=== PATIENT | male | born 1965 | race Caucasian/White ===

== ENCOUNTER 2017-06-22 08:25 | Emergency (ER) | payer OTHER ==
[2017-06-22] MEDS ORDERED: SODIUM CHLORIDE 0.9% 1,000 ML IV STA ×2 (08:39)
[2017-06-22] MEDS ORDERED: ONDANSETRON 4 MG/2 ML VIAL IVP STA ×2 (08:39→10:56)
[2017-06-22] MEDS ORDERED: PANTOPRAZOLE 40 MG/10 ML VIAL IVP STA (08:39)
--- NOTE | 2017-06-22 08:42 | ED ---
General Adult HPI - General Chief complaint: Nausea/Vomiting/Diarrhea Stated complaint: nausea, vomiting, leilani Time Seen by Provider: 06/22/17 08:30 Source: patient, RN notes reviewed Mode of arrival: wheelchair Limitations: no limitations - History of Present Illness Initial comments: Patient is a 51-year-old male who presents emergency room today with a chief complaint of nausea vomiting over the last 5 days. He admits to pain throughout his body. Admits to chronic back pain. States that he's had pain everywhere in his legs his back and his abdomen. Also admits chest pain going across describes as a squeezing type pain that been present for the last 5 days. He states everything seemed to start together. Patient states she's not been able to keep down any liquids or food. Patient does admit that he believes he saw some blood in the emesis 3 days ago. States was a lot of stomach acid. He denies any other complaints or associated symptoms. Patient denies any recent fever, chills, numbness or tingling, dysuria or hematuria, constipation or diarrhea, headaches or visual changes, or any other complaints. - Related Data Home Medications Medication Instructions Recorded Confirmed Gabapentin [Neurontin] 800 mg PO TID 10/09/13 06/22/17 Lisinopril [Zestril] 20 mg PO DAILY 10/09/13 06/22/17 Hydrocodone/Acetaminophen 1 tab PO QID 02/27/14 06/22/17 [Hydrocodone/Acetaminophen 10-325] Baclofen 10 mg PO BID 06/22/17 06/22/17 Previous Rx's Medication Instructions Recorded Ondansetron Odt [Zofran ODT] 4 mg PO Q8HR PRN #20 tab 06/22/17 Allergies Allergy/AdvReac Type Severity Reaction Status Date / Time Penicillins Allergy Unknown Verified 06/22/17 08:56 Childhood Review of Systems ROS Statement: Those systems with pertinent positive or pertinent negative responses have been documented in the HPI. ROS Other: All systems not noted in ROS Statement are negative. Past Medical History Past Medical History: Hypertension, Osteoarthritis (OA) Additional Past Medical History / Comment(s): back problems, brain bleed jan 2014, hernia History of Any Multi-Drug Resistant Organisms: None Reported Past Surgical History: No Surgical Hx Reported Additional Past Anesthesia/Blood Transfusion Reaction / Comment(s): bp dropped after local given for tooth extraction Past Psychological History: No Psychological Hx Reported Smoking Status: Current every day smoker Past Alcohol Use History: None Reported Past Drug Use History: Marijuana - Past Family History Father Family Medical History: Hypertension Mother Family Medical History: No Reported History General Exam - General Exam Comments Initial Comments: General: The patient is awake and alert, in no distress, and does not appear acutely ill. Eye: Pupils are equal, round and reactive to light, extra-ocular movements are intact. No nystagmus. There is normal conjunctiva bilaterally. No signs of icterus. Ears, nose, mouth and throat: There are moist mucous membranes and no oral lesions. Neck: The neck is supple, there is no tenderness or JVD. Cardiovascular: There is a regular rate and rhythm. No murmur, rub or gallop is appreciated. Respiratory: Lungs are clear to auscultation, respirations are non-labored, breath sounds are equal. No wheezes, stridor, rales, or rhonchi. Gastrointestinal: Soft, non-distended. Mild tenderness throughout the abdominal wall. There is no rebound or guarding present. No CVA tenderness. Musculoskeletal: Normal ROM, no tenderness. Strength 5/5. Sensation intact. Pulses equal bilaterally 2+. Neurological: A&O x 3. CN II-XII intact, There are no obvious motor or sensory deficits. Coordination appears grossly intact. Speech is normal. Skin: Skin is warm and dry and no rashes or lesions are noted. Psychiatric: Cooperative, appropriate mood & affect, normal judgment. Limitations: no limitations Course Vital Signs 06/22/17 06/22/17 08:27 10:30 Temperature 97.8 F Pulse Rate 88 81 Respiratory 20 16 Rate Blood Pressure 113/68 128/76 O2 Sat by Pulse 98 96 Oximetry EKG Findings - EKG Comments: EKG Findings:: EKG performed at 0857: Shows normal sinus rhythm at 83 bpm. [place] interval 126. QRS 92. QT/QTc is 370/434. No acute ST changes. Medical Decision Making - Medical Decision Making Case discussed in detail with attending physician Dr. Lerma. Patient reexamined at this time shows no signs of distress resting comfortably. Patient labs been reviewed 13,000 white count. Several bouts of vomiting. No specific pain on palpation. EKG shows normal sinus rhythm. X-rays have been reviewed are unremarkable. Patient given 2 L of fluids here in the emergency room feeling better was given his home medications and was unable to express past week. Patient doing well at this time will be discharged home with nausea medication. Advised to follow-up the family doctor return if any symptoms increase worsen. - Lab Data Result diagrams: 06/22/17 08:56 06/22/17 08:56 Lab Results 06/22/17 06/22/17 06/22/17 Range/Units 08:56 08:56 08:56 WBC 13.6 H (3.8-10.6) k/uL RBC 5.61 (4.30-5.90) m/uL Hgb 18.0 H (13.0-17.5) gm/dL Hct 51.3 (39.0-53.0) % MCV 91.5 (80.0-100.0) fL MCH 32.1 (25.0-35.0) pg MCHC 35.1 (31.0-37.0) g/dL RDW 12.6 (11.5-15.5) % Plt Count 320 (150-450) k/uL Neutrophils % 72 % Lymphocytes % 19 % Monocytes % 7 % Eosinophils % 1 % Basophils % 0 % Neutrophils # 9.7 H (1.3-7.7) k/uL Lymphocytes # 2.6 (1.0-4.8) k/uL Monocytes # 0.9 (0-1.0) k/uL Eosinophils # 0.1 (0-0.7) k/uL Basophils # 0.0 (0-0.2) k/uL PT (9.0-12.0) sec INR (<1.2) APTT (22.0-30.0) sec Sodium 137 (137-145) mmol/L Potassium 4.5 (3.5-5.1) mmol/L Chloride 98 (98-107) mmol/L Carbon Dioxide 24 (22-30) mmol/L Anion Gap 15 mmol/L BUN 36 H (9-20) mg/dL Creatinine 1.19 (0.66-1.25) mg/dL Est GFR (CKD-EPI)AfAm 83 (>60 ml/min/1.73 sqM) Est GFR (CKD-EPI)NonAf 71 (>60 ml/min/1.73 sqM) Glucose 114 H (74-99) mg/dL Calcium 10.1 (8.4-10.2) mg/dL Magnesium 2.6 H (1.6-2.3) mg/dL Total Bilirubin 0.8 (0.2-1.3) mg/dL AST 21 (17-59) U/L ALT 20 L (21-72) U/L Alkaline Phosphatase 79 (38-126) U/L Total Creatine Kinase 268 H (55-170) U/L CK-MB (CK-2) 0.7 (0.0-2.4) ng/mL CK-MB (CK-2) Rel Index 0.3 Troponin I <0.012 (0.000-0.034) ng/mL Total Protein 8.2 (6.3-8.2) g/dL Albumin 4.9 (3.5-5.0) g/dL Amylase 41 (30-110) U/L Lipase 26 (23-300) U/L / Range/Units 08:56 WBC (3.8-10.6) k/uL RBC (4.30-5.90) m/uL Hgb (13.0-17.5) gm/dL Hct (39.0-53.0) % MCV (80.0-100.0) fL MCH (25.0-35.0) pg MCHC (31.0-37.0) g/dL RDW (11.5-15.5) % Plt Count (150-450) k/uL Neutrophils % % Lymphocytes % % Monocytes % % Eosinophils % % Basophils % % Neutrophils # (1.3-7.7) k/uL Lymphocytes # (1.0-4.8) k/uL Monocytes # (0-1.0) k/uL Eosinophils # (0-0.7) k/uL Basophils # (0-0.2) k/uL PT 10.2 (9.0-12.0) sec INR 1.0 (<1.2) APTT 24.2 (22.0-30.0) sec Sodium (137-145) mmol/L Potassium (3.5-5.1) mmol/L Chloride (98-107) mmol/L Carbon Dioxide (22-30) mmol/L Anion Gap mmol/L BUN (9-20) mg/dL Creatinine (0.66-1.25) mg/dL Est GFR (CKD-EPI)AfAm (>60 ml/min/1.73 sqM) Est GFR (CKD-EPI)NonAf (>60 ml/min/1.73 sqM) Glucose (74-99) mg/dL Calcium (8.4-10.2) mg/dL Magnesium (1.6-2.3) mg/dL Total Bilirubin (0.2-1.3) mg/dL AST (17-59) U/L ALT (21-72) U/L Alkaline Phosphatase (38-126) U/L Total Creatine Kinase (55-170) U/L CK-MB (CK-2) (0.0-2.4) ng/mL CK-MB (CK-2) Rel Index Troponin I (0.000-0.034) ng/mL Total Protein (6.3-8.2) g/dL Albumin (3.5-5.0) g/dL Amylase (30-110) U/L Lipase (23-300) U/L Disposition Clinical Impression: Nausea & vomiting Disposition: HOME SELF-CARE Instructions: Acute Nausea and Vomiting (ED) Additional Instructions: Please use medication as discussed. Please follow-up with family doctor in the next 2 days of symptoms have not improved. Please return to emergency room if the symptoms increase or worsen or for any other concerns. Prescriptions: Ondansetron Odt [Zofran ODT] 4 mg PO Q8HR PRN #20 tab PRN Reason: Nausea Referrals: Miriam Maldonado MD [Primary Care Provider] - 1-2 days Time of Disposition: 11:18
[2017-06-22 09:09] LABS: Basophils % (A) 0 %; Eosinophils # (A) 0.1 k/uL (0-0.7); Eosinophils % (A) 1 %; HCT 51.3 % (39.0-53.0); Lymphocytes # (A) 2.6 k/uL (1.0-4.8); Lymphocytes % (A) 19 %; MCH 32.1 pg (25.0-35.0); MCHC 35.1 g/dL (31.0-37.0); MCV 91.5 fL (80.0-100.0); Mean Platelet Volume 6.5; Monocytes # (A) 0.9 k/uL (0-1.0); Monocytes % (A) 7 %; Neutrophils # (A) 9.7 k/uL (1.3-7.7); Neutrophils % (A) 72 %; Platelet Count 320 k/uL (150-450); RBC 5.61 m/uL (4.30-5.90); RDW 12.6 % (11.5-15.5); WBC 13.6 k/uL (3.8-10.6)
[2017-06-22 09:17] LABS: Partial Thromboplastin Time 24.2 sec (22.0-30.0); Prothrombin Time 10.2 sec (9.0-12.0)
[2017-06-22 09:21] LABS: Albumin 4.9 g/dL (3.5-5.0); Calcium 10.1 mg/dL (8.4-10.2); Magnesium 2.6 mg/dL (1.6-2.3); Potassium 4.5 mmol/L (3.5-5.1); Total Bilirubin 0.8 mg/dL (0.2-1.3); Total Protein 8.2 g/dL (6.3-8.2)
--- NOTE | 2017-06-22 09:26 | XR ---
EXAMINATION TYPE: XR chest 2V DATE OF EXAM: 06/22/2017 COMPARISON: 02/09/2014 HISTORY: Chest pain TECHNIQUE: Frontal and lateral views of the chest are obtained. FINDINGS: There is no focal air space opacity. No evidence for pneumothorax. No pleural effusion. The cardiac silhouette size is within normal limits. The osseous structures are grossly intact. IMPRESSION: 1. No acute cardiopulmonary process.
--- NOTE | 2017-06-22 09:27 | XR ---
EXAMINATION TYPE: XR KUB DATE OF EXAM: 06/22/2017 COMPARISON: NONE HISTORY: Pain TECHNIQUE: One view abdominal series FINDINGS: The osseous structures are intact. The bowel gas pattern is nonspecific. Lung bases are clear. Hype rtrophic change of the spine. IMPRESSION: 1. Nonspecific abdomen.
[2017-06-22 09:37] LABS: Creatine Kinase 268 U/L (55-170)
[2017-06-22 09:49] LABS: Creatine Kinase MB 0.7 ng/mL (0.0-2.4); Troponin I <0.012 ng/mL (0.000-0.034)
[2017-06-22 10:32] VITALS: RESP 16
[2017-06-22] MEDS ORDERED: BACLOFEN 10 MG TAB PO PRN (11:08)
[2017-06-22] MEDS ORDERED: GABAPENTIN 400 MG CAP PO STA (11:08)
[2017-06-22] MEDS ORDERED: HYDROcodone/APAP 10-325MG 1 EACH TAB PO ONE (11:08)
[2017-06-22 12:10] VITALS: BP 125/77; PULSE 71; TEMP 97.4
== END 2017-06-22 12:50 | disposition home or self-care (01) ==
LOC: EC 08:25
DX: R11.2 Nausea with vomiting, unspecified (principal); R07.9 Chest pain, unspecified; G89.29 Other chronic pain; M54.9 Dorsalgia, unspecified; M79.604 Pain in right leg; M79.605 Pain in left leg; R10.9 Unspecified abdominal pain; I10 Essential (primary) hypertension; F17.200 Nicotine dependence, unspecified, uncomplicated; Z79.891 Long term (current) use of opiate analgesic; Z79.899 Other long term (current) drug therapy; Z88.0 Allergy status to penicillin; Z82.49 Family history of ischemic heart disease and other diseases of the circulatory system
CPT/HCPCS: 36415; 93005; 80053; 82150; 82550; 82553; 83690; 83735; 84484; 85025; 85610; 85730; 71046; 74018; 99285; 96374; 96375; 96376; 96361 ×4; J2405; C9113

== ENCOUNTER → 2018-11-30 | Outpatient (CLI) | payer OTHER ==
--- NOTE | 2018-11-30 18:29 | MR ---
EXAMINATION TYPE: MR cspine/lspine wo con DATE OF EXAM: 11/30/2018 COMPARISON: MR scan lumbar spine 03/25/2014 HISTORY: Spondylosis or cervical region, low back pain, radiculopathy of lumbosacral region, spondylo sis of lumbar region TECHNIQUE: Multiplanar, multisequence imaging of the lumbar and cervical spine is performed without I V contrast. FINDINGS: Cervical vertebra have normal alignment. There is slight narrowing of the C5-6 disc space. There is s mall posterior disc herniation at C5-6 C6-7. Cervical spinal cord has normal signal pattern. There is no edema. Brainstem is intact. There is no spinal stenosis. I see no bony destructive process. There is no cervical paraspinal mass. Lumbar vertebra have normal alignment. There is degenerative disc space narrowing from L2 to S1 with decreased signal in the disks. There is posterior disc bulging and herniation at L2-3 L3-4 and also L 5-S1. Lumbar nerve roots have normal signal pattern. There is left side neural foraminal narrowing at L4-5 due to facet arthropathy and disc space narrowing. I see no bony destructive process. There is no lumbar compression fracture. There is posterior right-sided L5-S1 disc herniation impinging on the lateral recess. There is no lumbar paraspinal mass. Visualized sacroiliac joints are intact. IMPRESSION: Mild spondylotic changes in the cervical spine. Small posterior disc herniations as above without sig nificant impingement on the canal. No significant spinal stenosis. Lumbar spine shows multilevel spondylotic changes with posterior disc herniation and spurring. There is left side L4-5 neural foraminal impingement. There is right side L5-S1 lateral recess stenosis due to disc herniation. There is progression of abnormality at L5-S1 compared to old MR scan. No signifi cant changes at L2-3 L3-4.
== END | disposition home or self-care (01) ==
LOC: RADMRIMAIN 13:54
PROVIDERS: ATTEND Psychiatry & Neurology Neurology
DX: M51.26 Other intervertebral disc displacement, lumbar region (principal); M48.061 Spinal stenosis, lumbar region without neurogenic claudication
CPT/HCPCS: 72141; 72148

== ENCOUNTER 2019-02-14 20:34 | Emergency (ER) | payer OTHER ==
[2019-02-14 20:58] VITALS: RESP 16
[2019-02-14] MEDS ORDERED: oxyCODONE-APAP 10-325MG 1 EACH TAB PO STA (21:53)
--- NOTE | 2019-02-14 22:11 | ED ---
General Adult HPI - General Chief complaint: Shortness of Breath Stated complaint: Post Op Neck Surgery, Difficulty Breathing Time Seen by Provider: 02/14/19 20:55 Source: patient, family Mode of arrival: wheelchair Limitations: no limitations - History of Present Illness Initial comments: Dictation was produced using [employer] dictation software. please excuse any grammatical, word or spelling errors. Chief Complaint: 53-year-old male presents with foreign body sensation in throat. History of Present Illness: 53-year-old male who presents today with foreign body sensation in throat, nausea and vomiting. Patient was at [facility] when he had a neck fusion performed by Dr. Marroquin. Surgery was performed 3 days ago. He states that the surgery was on complicated. He was kept in hospital for one day and discharged home. Patient states he had symptoms since after the surgery however felt like it is getting worse today prompting him to come to the emergency department. Patient denies any drug like symptoms. Denies any fever chills or night sweats. He feels like there is a lump in his throat just above his sternal notch. He is complaining of pain however his pain is stable since the surgery. He wears a c-collar that has remained in place for several weeks. The ROS documented in this emergency department record has been reviewed and confirmed by me. Those systems with pertinent positive or negative responses have been documented in the HPI. All other systems are other negative and/or no ncontributory. PHYSICAL EXAM: General Impression: Alert and oriented x3, not in acute distress HEENT: Normocephalic atraumatic, extra-ocular movements intact, pupils equal and reactive to light bilaterally, mucous membranes moist, surgical site clean dry and intact, no bruit, no tenderness to palpation, no signs of discharge or infection. Cardiovascular: Heart regular rate and rhythm, S1&S2 audible, no murmurs, rubs or gallops Chest: Lungs clear to auscultation bilaterally, no rhonchi, no wheeze, no rales Abdomen: Bowel sounds present, abdomen soft, non-tender, non-distended, no organomegaly Musculoskeletal: Pulses present and equal in all extremities, no peripheral edema Motor: no focal deficits noted Neurological: CN II-XII grossly intact, no focal motor or sensory deficits noted Skin: Intact with no visualized rashes Psych: Normal affect and mood ED course: 53-year-old male presents with foreign body sensation in his throat exacerbated with eating. As upon arrival are within acceptable limits. Patient not showing any signs of respiratory distress. Patient denies any respiratory distress or shortness of breath upon my evaluation and HPI. Laboratory evaluation obtained. CBC, coag panel, metabolic panel is unremarkable. Computed tomography scan of the soft tissue neck with contrast shows postsurgical changes. There does appear to be some thickening at the level of the upper cervical esophagus below the level of the surgery site.. Radiology reports that this may represent postsurgical hematoma. Discussed patient case with Dr. Lombardi who is on-call for Dr. Marroquin patient's primary surgeon. Dr. Lombardi reports that patient stable for discharge. Does request patient be given prescription for Decadron 4 mg every 6 hours for 24 hours. Patient tolerating by mouth at bedside. He is not in any respiratory distress. Patient is cleared for discharge. Return parameters discussed. Patient understandable and agreeable to disposition. Patient is told to follow-up with Dr. Marroquin. EKG interpretation: Ventricular rate 85, normal sinus rhythm,. 146, QS 86, QTC 426. No NE prolongation, no QTC prolongation, no ST or T-wave changes noted. . Overall, this EKG is unremarkable - Related Data Home Medications Medication Instructions Recorded Confirmed Gabapentin [Neurontin] 800 mg PO TID 10/09/13 02/14/19 Lisinopril [Zestril] 20 mg PO HS 10/09/13 02/14/19 Hydrocodone/Acetaminophen 1 tab PO QID PRN 02/27/14 02/14/19 [Hydrocodone/Acetaminophen 10-325] Baclofen 10 mg PO BID 06/22/17 02/14/19 oxyCODONE HCL [OxyIR] 5 mg PO Q4H PRN 02/14/19 02/14/19 Allergies Allergy/AdvReac Type Severity Reaction Status Date / Time Penicillins Allergy Unknown Verified 02/14/19 21:49 Childhood Review of Systems ROS Statement: Those systems with pertinent positive or pertinent negative responses have been documented in the HPI. ROS Other: All systems not noted in ROS Statement are negative. Past Medical History Past Medical History: Hypertension, Osteoarthritis (OA) Additional Past Medical History / Comment(s): back problems, brain bleed jan 2014, hernia History of Any Multi-Drug Resistant Organisms: None Reported Past Surgical History: No Surgical Hx Reported, Back Surgery Additional Past Surgical History / Comment(s): neck surgery Additional Past Anesthesia/Blood Transfusion Reaction / Comment(s): bp dropped after local given for tooth extraction Past Psychological History: No Psychological Hx Reported Smoking Status: Current every day smoker Past Alcohol Use History: None Reported Past Drug Use History: Marijuana - Past Family History Father Family Medical History: Hypertension Mother Family Medical History: No Reported History General Exam Limitations: no limitations Course Vital Signs 02/14/19 02/14/19 02/14/19 20:37 20:56 21:59 Temperature 98.1 F Pulse Rate 95 Respiratory 20 16 16 Rate Blood Pressure 126/88 O2 Sat by Pulse 98 97 Oximetry 02/14/19 22:45 Temperature 97.5 F L Pulse Rate 68 Respiratory 16 Rate Blood Pressure 104/58 O2 Sat by Pulse 96 Oximetry Medical Decision Making - Lab Data Result diagrams: 02/14/19 21:37 02/14/19 21:37 Lab Results 02/14/19 02/14/19 02/14/19 Range/Units 21:37 21:37 21:37 WBC 9.7 (3.8-10.6) k/uL RBC 4.73 (4.30-5.90) m/uL Hgb 15.4 (13.0-17.5) gm/dL Hct 45.2 (39.0-53.0) % MCV 95.6 (80.0-100.0) fL MCH 32.5 (25.0-35.0) pg MCHC 34.0 (31.0-37.0) g/dL RDW 13.2 (11.5-15.5) % Plt Count 268 (150-450) k/uL Neutrophils % 71 % Lymphocytes % 20 % Monocytes % 6 % Eosinophils % 1 % Basophils % 0 % Neutrophils # 6.9 (1.3-7.7) k/uL Lymphocytes # 1.9 (1.0-4.8) k/uL Monocytes # 0.6 (0-1.0) k/uL Eosinophils # 0.1 (0-0.7) k/uL Basophils # 0.0 (0-0.2) k/uL PT 9.4 (9.0-12.0) sec INR 0.8 (<1.2) APTT 23.8 (22.0-30.0) sec Sodium 140 (137-145) mmol/L Potassium 4.2 (3.5-5.1) mmol/L Chloride 102 (98-107) mmol/L Carbon Dioxide 28 (22-30) mmol/L Anion Gap 10 mmol/L BUN 16 (9-20) mg/dL Creatinine 0.92 (0.66-1.25) mg/dL Est GFR (CKD-EPI)AfAm >90 (>60 ml/min/1.73 sqM) Est GFR (CKD-EPI)NonAf >90 (>60 ml/min/1.73 sqM) Glucose 107 H (74-99) mg/dL Calcium 9.9 (8.4-10.2) mg/dL Disposition Clinical Impression: Post surgical complication Disposition: HOME SELF-CARE Condition: Good Instructions (If sedation given, give patient instructions): Dysphagia (ED) Additional Instructions: Follow up w Dr. Marroquin Is patient prescribed a controlled substance at d/c from ED?: No Referrals: Miriam Maldonado MD [Primary Care Provider] - 1-2 days Time of Disposition: 23:03
[2019-02-14 22:15] LABS: Basophils % (A) 0 %; Eosinophils # (A) 0.1 k/uL (0-0.7); Eosinophils % (A) 1 %; HCT 45.2 % (39.0-53.0); HGB 15.4 gm/dL (13.0-17.5); Lymphocytes # (A) 1.9 k/uL (1.0-4.8); Lymphocytes % (A) 20 %; MCH 32.5 pg (25.0-35.0); MCV 95.6 fL (80.0-100.0); Monocytes # (A) 0.6 k/uL (0-1.0); Monocytes % (A) 6 %; Neutrophils # (A) 6.9 k/uL (1.3-7.7); Neutrophils % (A) 71 %; Platelet Count 268 k/uL (150-450); RBC 4.73 m/uL (4.30-5.90); RDW 13.2 % (11.5-15.5); WBC 9.7 k/uL (3.8-10.6)
[2019-02-14 22:24] LABS: African American GFR (CKD) >90 (>60 ml/min/1.73 sqM); Anion Gap 10 mmol/L; Blood Urea Nitrogen 16 mg/dL (9-20); Calcium 9.9 mg/dL (8.4-10.2); Carbon Dioxide 28 mmol/L (22-30); Chloride 102 mmol/L (98-107); Glucose 107 mg/dL (74-99); INR 0.8 (<1.2); Partial Thromboplastin Time 23.8 sec (22.0-30.0); Potassium 4.2 mmol/L (3.5-5.1); Prothrombin Time 9.4 sec (9.0-12.0); Sodium 140 mmol/L (137-145)
--- NOTE | 2019-02-14 22:41 | CT ---
EXAMINATION TYPE: CT soft tissue neck w con DATE OF EXAM: 02/14/2019 10:12 PM COMPARISON: None HISTORY: Difficulty breathing and swallowing post cervical fusion x3 days ago. CT DLP: 267.9 mGycm Automated exposure control for dose reduction was used. CONTRAST: CT scan of the neck is performed following with IV Contrast, patient injected with 100ml mL of Isovue 300. Axial images are obtained, coronal and sagittal reformatted images are reviewed. FINDINGS: There is normal branching pattern of the great vessels on the aortic arch. Thyroid gland is symmetric . There is arterial flow in the carotid and vertebral arteries. There is normal contrast opacificatio n of the jugular veins. There is soft tissue air in the anterior right neck related to recent surgery . There is metal artifact from anterior fusion surgery at C5 and C6 and C7. The cervical vertebra hav e normal alignment. Prevertebral soft tissues show some thickening at the surgery site. I see no retr opharyngeal thickening above the site of the surgery. There appears to be a small amount of fluid or thickening at the upper cervical esophagus at the leve l of C7-T1. This is below the level of the surgery site. Epiglottis is normal. Trachea appears normal. Tonsils and adenoids are within normal limits. Submandi bular salivary glands appear normal. Parotid glands are symmetric. There is normal aeration of the ma xillary sinuses. Skull base is intact. IMPRESSION: Postsurgical changes. There is some thickening at the level of the upper cervical esopha sarah below the level of the surgery site at the C7 T1 T2 level of uncertain significance. This could b e postsurgical hematoma.
[2019-02-14 22:54] VITALS: BP 104/58; PULSE 68; TEMP 97.5
[2019-02-14] MEDS ORDERED: DEXAMETHASONE SOD PHOSPHATE 10 MG/ML 1 ML VIAL IV STA (22:57)
--- NOTE | 2019-02-14 23:33 | ED ---
Medical Decision Making - Lab Data Result diagrams: 02/14/19 21:37 02/14/19 21:37 Lab Results 02/14/19 02/14/19 02/14/19 Range/Units 21:37 21:37 21:37 WBC 9.7 (3.8-10.6) k/uL RBC 4.73 (4.30-5.90) m/uL Hgb 15.4 (13.0-17.5) gm/dL Hct 45.2 (39.0-53.0) % MCV 95.6 (80.0-100.0) fL MCH 32.5 (25.0-35.0) pg MCHC 34.0 (31.0-37.0) g/dL RDW 13.2 (11.5-15.5) % Plt Count 268 (150-450) k/uL Neutrophils % 71 % Lymphocytes % 20 % Monocytes % 6 % Eosinophils % 1 % Basophils % 0 % Neutrophils # 6.9 (1.3-7.7) k/uL Lymphocytes # 1.9 (1.0-4.8) k/uL Monocytes # 0.6 (0-1.0) k/uL Eosinophils # 0.1 (0-0.7) k/uL Basophils # 0.0 (0-0.2) k/uL PT 9.4 (9.0-12.0) sec INR 0.8 (<1.2) APTT 23.8 (22.0-30.0) sec Sodium 140 (137-145) mmol/L Potassium 4.2 (3.5-5.1) mmol/L Chloride 102 (98-107) mmol/L Carbon Dioxide 28 (22-30) mmol/L Anion Gap 10 mmol/L BUN 16 (9-20) mg/dL Creatinine 0.92 (0.66-1.25) mg/dL Est GFR (CKD-EPI)AfAm >90 (>60 ml/min/1.73 sqM) Est GFR (CKD-EPI)NonAf >90 (>60 ml/min/1.73 sqM) Glucose 107 H (74-99) mg/dL Calcium 9.9 (8.4-10.2) mg/dL Disposition Clinical Impression: Post surgical complication Disposition: HOME SELF-CARE Condition: Good Instructions (If sedation given, give patient instructions): Dysphagia (ED) Additional Instructions: Follow up w Dr. Marroquin Prescriptions: Dexamethasone [Decadron] 4 mg PO Q6H 1 Days #4 tablet Is patient prescribed a controlled substance at d/c from ED?: No Referrals: Miriam Maldonado MD [Primary Care Provider] - 1-2 days Time of Disposition: 23:33
== END 2019-02-14 23:10 | disposition home or self-care (01) ==
LOC: EC 20:34
DX: T81.89XA Other complications of procedures, not elsewhere classified, initial encounter (principal); I10 Essential (primary) hypertension; M19.90 Unspecified osteoarthritis, unspecified site; F17.200 Nicotine dependence, unspecified, uncomplicated; Z88.0 Allergy status to penicillin; Z79.891 Long term (current) use of opiate analgesic; Z79.899 Other long term (current) drug therapy; Z98.1 Arthrodesis status
CPT/HCPCS: 36415; 93005; 80048; 85025; 85610; 85730; 70491; 99285; 96374; J1100; Q9967

== ENCOUNTER 2021-10-31 23:18 | Emergency (ER) | payer OTHER ==
[2021-10-31 23:22] VITALS: BP 142/97; PULSE 80; RESP 18; TEMP 98.2
[2021-10-31] MEDS ORDERED: NYSTATIN 100,000 UNIT/ML SUSP 500,000 UNIT/5 ML CUP PO STA (23:35)
--- NOTE | 2021-10-31 23:42 | ED ---
ENT HPI - General Chief complaint: ENT Stated complaint: Sore Throat Time Seen by Provider: 10/31/21 23:28 Source: patient, RN notes reviewed Mode of arrival: ambulatory Limitations: no limitations - History of Present Illness Initial comments: This is a pleasant 56-year-old male who presents complaining of a sore throat which is exacerbated by swallowing. He states this really started earlier today. Patient denying any fever. Denies any cough. Denies any other symptomology. No headache, no fever or chills, no changes in vision or hearing, no difficulty with speech, no neck pain, no chest pain or shortness of breath, no abdominal pain, no nausea or vomiting, no changes in urination or bowel movements, no numbness or tingling, no extremity pain, no skin rashes or lesions. Past medical, surgical, social, and family history reviewed. Patient denies any recent exposures. No immunosuppression. States that he recently had laboratory investigations done by his primary care physician. MD complaint: sore throat - Related Data Home Medications Medication Instructions Recorded Confirmed Gabapentin [Neurontin] 800 mg PO TID 10/09/13 02/14/19 lisinopriL [Zestril] 20 mg PO HS 10/09/13 02/14/19 Hydrocodone/Acetaminophen 1 tab PO QID PRN 02/27/14 02/14/19 [Hydrocodone/Acetaminophen 10-325] Baclofen 10 mg PO BID 06/22/17 02/14/19 oxyCODONE HCL [OxyIR] 5 mg PO Q4H PRN 02/14/19 02/14/19 Previous Rx's Medication Instructions Recorded dexAMETHasone [Decadron] 4 mg PO Q6H 1 Days #4 tablet 02/14/19 Nystatin 100,000 Unit/ml Susp 5 ml PO QID 14 Days #280 ml 10/31/21 [Mycostatin Oral Susp] Allergies Allergy/AdvReac Type Severity Reaction Status Date / Time Penicillins Allergy Unknown Verified 10/31/21 23:21 Childhood Review of Systems ROS Statement: Those systems with pertinent positive or pertinent negative responses have been documented in the HPI. ROS Other: All systems not noted in ROS Statement are negative. Past Medical History Past Medical History: Hypertension, Osteoarthritis (OA) Additional Past Medical History / Comment(s): back problems, brain bleed jan 2014, hernia History of Any Multi-Drug Resistant Organisms: None Reported Past Surgical History: No Surgical Hx Reported, Back Surgery Additional Past Surgical History / Comment(s): neck surgery Additional Past Anesthesia/Blood Transfusion Reaction / Comment(s): bp dropped after local given for tooth extraction Past Psychological History: No Psychological Hx Reported Smoking Status: Current every day smoker Past Alcohol Use History: None Reported Past Drug Use History: Marijuana - Past Family History Father Family Medical History: Hypertension Mother Family Medical History: No Reported History General Exam - General Exam Comments Initial Comments: Nontoxic appearing male with stable vital signs. Patient in no distress at the time of seeing him. Adequate hydrated. Moist mucous membranes. No mottling, capillary refill less than 2 seconds Limitations: no limitations General appearance: alert, in no apparent distress Head exam: Present: atraumatic, normocephalic, normal inspection Eye exam: Present: normal appearance, PERRL, EOMI. Absent: scleral icterus, conjunctival injection, periorbital swelling ENT exam: Present: normal exam, mucous membranes moist, TM's normal bilaterally, normal external ear exam. Absent: normal oropharynx, mucous membranes dry Expanded Ear exam: Present: normal external inspection Mouth exam: Present: normal external inspection. Absent: drooling, trismus, muffled voice, tongue normal, tongue elevation, laceration Teeth exam: Present: normal inspection Throat exam: other (Patient has mild erythema of the soft palate with adherent white exudate consistent with oral candidiasis, no tonsillar exudate, no evidence of peritonsillar abscess). negative: tonsillar erythema, tonsillomegaly, tonsillar exudate, R peritonsillar mass, L peritonsillar mass Neck exam: Present: normal inspection, full ROM. Absent: tenderness, meningismus, lymphadenopathy Respiratory exam: Present: normal lung sounds bilaterally. Absent: respiratory distress, wheezes, rales, rhonchi, stridor, chest wall tenderness, accessory muscle use, decreased breath sounds, prolonged expiratory Cardiovascular Exam: Present: regular rate, normal rhythm, normal heart sounds. Absent: systolic murmur, diastolic murmur, rubs, gallop, clicks GI/Abdominal exam: Present: soft, normal bowel sounds. Absent: distended, tenderness, guarding, rebound, rigid Extremities exam: Present: normal inspection, full ROM, normal capillary refill. Absent: tenderness, pedal edema, joint swelling, calf tenderness Back exam: Present: normal inspection Neurological exam: Present: alert, oriented X3, CN II-XII intact Psychiatric exam: Present: normal affect, normal mood Skin exam: Present: warm, dry, intact, normal color. Absent: rash, cyanosis, diaphoretic, erythema, urticaria, vesicles, petechiae, pallor, mottled, abrasion Course Vital Signs 10/31/21 23:20 Temperature 98.2 F Pulse Rate 80 Respiratory 18 Rate Blood Pressure 142/97 O2 Sat by Pulse 99 Oximetry Medical Decision Making - Medical Decision Making Patient presents with what appears to be oral candidiasis. Patient has adherent white exudate on the soft palate as well as the throat consistent with mild candidiasis. Patient has no history of immunosuppression or recent contacts. I did advise blood work for further investigation. However the patient is deferring this stating that he will follow-up with his regular physician. Patient is hemodynamically stable otherwise. Patient be treated with nystatin. I did send a streptococcal test prior to patient discharge. However the patient did not want to wait for this. I will monitor this and contact the patient if necessary. Treatment plan discussed, questions answered. Patient is of sound mind to make his own medical decisions. Patient aware of the risks and the importance of follow-up. Patient was told to return to the ER for any signs or symptoms worsen. Told to return immediately if any other problems arise. All questions answered. Treatment plan discussed. Patient in agreement Every effort has been made to ensure accuracy of this dictation. However, due to the limitations of electronic medical records and dictation devices, errors in charting still occur. Park Superintendent Dr. Paredes Disposition Clinical Impression: Oral candidiasis, Sore throat Disposition: HOME SELF-CARE Condition: Stable Instructions (If sedation given, give patient instructions): Oral Candidiasis (ED) Additional Instructions: Call tomorrow morning at 8 AM to set up a follow-up appointment with your primary care physician as discussed. Return to the ER immediately if any symptoms worsen, new symptoms arise, or any other problems develop. Prescriptions: Nystatin 100,000 Unit/ml Susp [Mycostatin Oral Susp] 5 ml PO QID 14 Days #280 ml Is patient prescribed a controlled substance at d/c from ED?: No Referrals: Miriam Maldonado MD [Primary Care Provider] - 11/03/21 Time of Disposition: 23:37
== END 2021-11-01 00:03 | disposition home or self-care (01) ==
LOC: EC 23:18
DX: B37.0 Candidal stomatitis (principal); J02.9 Acute pharyngitis, unspecified; I10 Essential (primary) hypertension; M19.90 Unspecified osteoarthritis, unspecified site; F17.200 Nicotine dependence, unspecified, uncomplicated; F12.90 Cannabis use, unspecified, uncomplicated; Z88.0 Allergy status to penicillin; Z79.899 Other long term (current) drug therapy
CPT/HCPCS: 87651; 99284